=== PATIENT | female | born 2000 | race Caucasian/White ===

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

== ENCOUNTER 2024-09-22 06:49 | Inpatient (IN) ==
--- NOTE | 2024-09-22 07:20 | History & Physical Report ---
Date of Service September 22, 2024 Assessment & Plan (1) Breech presentation: Plan: section. The patient was counseled to the nature of the procedure including alternatives such as labor. Risks were discussed including bleeding infection injury to bowel bladder ureter vessels and even baby. Deep Vein thrombosis, pulmonary embolus discussed. Breakdown of incision reviewed. Deep vein thrombosis pulmonary embolus hernia and failure of the incision to heal were discussed Patient verbalized understanding of this and was given ample time to ask questions Patient arrived in active labor should be noted that she was scheduled for later this week however she is now 4 to 5 cm 100% effaced abdelrahman every 4 minutes painfully position is confirmed on ultrasound that is breech we will proceed to rapidly History of Present Illness Primary Care Provider: Mohamud Chavez DD Calculator Estimated Delivery Date Method Current WG Current Estimate 09/29/24 LMP (Certain) 38w 0d LMP: 12/24/23 : 1 Full term: 0 Premature: 0 Total Number of Induced Abortions: 0 Total Number of Spontaneous Abortions: 0 Ectopics: 0 Multiple births: 0 Number of Living Children: 0 and Delivery Plans Patient had pyloric stenosis surgery as Hepatitis b non-immune BREECH at 36wks C/S SCHEDULED FOR 09/25/[address] TIMMONS Allergies Allergy/AdvReac Type Severity Reaction Status Date / Time No Known Drug Allergies Allergy Verified 09/17/24 11:18 Home Medications Medication Instructions Recorded Confirmed Type calcium carbonate (Tums) 400 mg PO BID PRN Acid Reflux 09/17/24 09/17/24 History vit no.95-ferrous 1 tab PO QAM 09/17/24 09/17/24 History fumarate 28 mg-folic acid 800 mcg tablet () Patient History Medical History Breech presentation of fetus Pyloric stenosis hx--repaired Varicella vaccination Surgical History S/P pyloromyotomy, follow-up exam S/P wisdom tooth extraction Family History Grandmother (Maternal) Ovarian cancer Mother Breast cancer, Onset Age: 41 Other No family history of adverse response to anesthesia Denies family history of Prostate cancer Myocardial infarction Colorectal cancer Social History Smoking Status: Never smoker Second Hand Exposure: No; Do You Dip or Chew Tobacco: No; Hx Alcohol Use: No Hx Substance Use: No Preferred Language: Chinese Communication Ability: Effective Recovery Engineer Required: No Beliefs That Will Affect Care: None marital status: marital status details: Clint Salguero (28) [phone] Current Living Situation: Spouse Current Living Situation Comment: lives with, dog, cat-spouse changing litter current occupational status: employed current occupation: [employer] Feels Safe at Home: Yes Assistive Devices: Contacts and Glasses Physical Exam Constitutional: WD/WN, vitals as above well developed and well nourished Respiratory: normal respiratory effort, lungs clear to auscultation normal respiratory effort Cardiovascular: RRR, no murmur, no edema Gastrointestinal (Abdomen): normal bowel sounds, soft, nontender, no hepatosplenomegaly Results & Data Vital Signs (Past 12 Hours) Vital Signs Pulse BP 09/22/24 07:03 106 H 09/22/24 07:03 151/93 H 09/22/24 06:59 113 H 140/91 Coding Level of Care Code None Diagnoses Breech presentation O32.1XX0
[2024-09-22] MEDS: LACTATED RINGER'S 1,000 ML IV SCH ×2 (07:32→15:14)
--- NOTE | 2024-09-22 07:37 | Communication Note ---
Date of Service: September 22, 2024 24yo at term for planned c/s for breech now in active labor. Aware that given timing of arrival, will now allow provider overnight to go home and I will be provider of care. Consent reviewed and signed.
[2024-09-22] MEDS: AZITHROMYCIN 500 MG/255 ML BAG IV SCH (07:38)
[2024-09-22] MEDS ORDERED: PHENYLEPHRINE HCL 25 MG/250 ML NSS IV ONE (07:38)
[2024-09-22] MEDS ORDERED: PHENYLEPHRINE 100MCG/ML 5ML SYR ONE ×2 (07:38→08:45)
[2024-09-22] MEDS: ACETAMINOPHEN 500 MG TAB PO SCH (07:41)
[2024-09-22] MEDS ORDERED: MoRPHine SULFATE PF 1 MG/ML 10 ML AMP/VIAL ONE (07:42)
[2024-09-22] MEDS ORDERED: fentaNYL citrate PF 100 MCG/2 ML VIAL ONE (07:42)
[2024-09-22] MEDS ORDERED: ONDANSETRON INJ 2 MG/ML 2 ML VIAL ONE (07:44)
[2024-09-22] MEDS ORDERED: DEXAMETHASONE SOD INJ 4 MG/ML VIAL ONE (07:44)
[2024-09-22] MEDS: CITRIC ACID/SODIUM CITRATE 15 ML UDC PO SCH (07:44)
[2024-09-22 07:46] LABS: Hematocrit (blood only) 35.4 % (37.0-47.0); Hemoglobin 12.1 g/dl (12.0-16.0); Mean Corpuscular Hgb Conc 34.2 g/dL (32.0-36.0); Mean Corpuscular Volume 90.8 fL (80.0-100.0); Mean Platelet Volume 12.1 fL (9.4-12.4); Platelet Count 199 K/uL (130-400); RDW Coefficient of Variation 13.3 % (11.5-14.5); RDW Standard Deviation 43.8 fL (36.4-46.3); White Blood Count 11.71 K/ul (4.8-10.8)
[2024-09-22] MEDS: ceFAZolin 2000MG 2,000 MG/15 ML SYR IV SCH (07:57)
[2024-09-22] MEDS ORDERED: LACTATED RINGER'S 1,000 ML IV SCH (08:30)
[2024-09-22 08:33] LABS: Albumin Level 3.9 gm/dl (3.4-5.0); Bilirubin,Total 0.4 mg/dl (0.2-1.0); Calcium 9.8 mg/dl (8.6-10.3); Potassium 4.2 mmol/L (3.5-5.1)
[2024-09-22] MEDS ORDERED: oxyCODONE HCL IR 5 MG TAB (IMMEDIATE RELEASE) PO PRN (08:35)
[2024-09-22] MEDS ORDERED: MoRPHine SULFATE PF 1 MG/ML 10 ML AMP/VIAL INT SPINAL ONE (08:35)
[2024-09-22] MEDS ORDERED: HYDROmorphone INJ 0.5 MG/0.5 ML SYR IV PRN (08:35)
[2024-09-22] MEDS ORDERED: NALOXONE HCL 0.4 MG/1 ML VIAL/CARP IV PRN (08:35)
[2024-09-22] MEDS ORDERED: NALOXONE HCL 0.08 MG in SYRINGE 1.8 ML IV PRN (08:35)
[2024-09-22] MEDS ORDERED: NALOXONE HCL 1 MG in SODIUM CHLORIDE 0.9% 1,000 ML IV PRN (08:35)
[2024-09-22] MEDS ORDERED: diphenhydrAMINE 50 MG/ML VIAL IV PRN (08:35)
[2024-09-22] MEDS ORDERED: PROMETHAZINE 6.25 MG/50.25 ML BAG IV PRN (08:35)
[2024-09-22] MEDS ORDERED: ONDANSETRON INJ 2 MG/ML 2 ML VIAL IV PRN (08:35)
[2024-09-22] MEDS ORDERED: ePHEDrine sulfate 50 MG/ML AMP IV PRN (08:35)
[2024-09-22] MEDS ORDERED: NALBUPHINE HCL INJ 10 MG/ML AMP IV PRN (08:35)
[2024-09-22 08:39] LABS: Albumin Globulin Ratio 1.4 (0.9-2); BUN Creatinine Ratio 9.3 (10-20); Creatinine Clr Calc Pharmacy 138.5 ml/min; Globulin 2.7 gm/dl (2.5-4.0); Total Protein 6.6 gm/dl (6.0-8.3)
[2024-09-22] MEDS ORDERED: NO NARCOTICS OR SEDATIVES SCH (08:45)
[2024-09-22] MEDS ORDERED: DC INTRASPINAL MORPHINE SCH (08:45)
[2024-09-22] MEDS ORDERED: SENNA 8.6 MG TAB PO PRN (08:55)
[2024-09-22] MEDS ORDERED: CALCIUM CARBONATE 500 MG CHEWABLE TAB PO PRN (08:55)
[2024-09-22] MEDS ORDERED: DIPHTHER/TETAN/PERTUS Vaccine (Tdap, Adol/Adult) 0.5mL IM ONE (08:55)
[2024-09-22] MEDS ORDERED: MAGNESIUM HYDROXIDE SUSP 30 ML UDC PO PRN (08:55)
[2024-09-22] MEDS ORDERED: BENZOCAINE 20% SPRY 85 APPLN/85 GM CAN EXT PRN (08:55)
[2024-09-22] MEDS ORDERED: PROMETHAZINE 12.5 MG/50.5 ML BAG IV PRN (08:55)
[2024-09-22] MEDS ORDERED: HYDROCORTISONE ACETATE 25 MG SUPP PR PRN (08:55)
--- NOTE | 2024-09-22 09:06 | Operative Report ---
Post Operative Report Pre & Post Diagnosis Operation Date: 09/22/24 08:00 Pre-Op Diagnosis: 39 weeks iup, Active Labor, Breech Presentation of Fetus Post-Op Diagnosis: Same; Uterus sweetheart shape I identified the patient and participated in the time-out.: Yes Procedure Operation Date: 09/22/24 08:00 Actual Procedures p Primary Low Transverse Section in - Fallon Gongora MD, FACOG Surgeon Fallon Gongora MD, FACOG Beef Breaker PGY 1 Quantitative Blood Loss (QBL) 290 Findings See Below viable female,apgars pending. normal uterus, tubes and ovaries bilaterally. Of note the uterus had a sweet heart shape. Fluids 900cc Specimens cord blood Drains mehta Anesthesia Type Spinal Complications none Disposition Accompanied Patient To Recovery: No Disposition: L&D Indications 24yo at 39wks ega presents in labor with breech presentation for c/s. Description of Procedure The patient was taken to the operating room and identified. After adequate anesthesia was obtained, she was placed in the supine position with a leftward tilt on the operating table and prepped and draped in the usual sterile fashion. A mehta catheter had already been placed. The knife was used to create a Pfannensteil skin incision that was carried down to the underlying layer of fascia. The fascia was nicked in the midline and this opening was extended laterally using Leal scissors. Yariel clamps were placed on the superior and inferior aspect of the fascial incision tenting it upward and the underlying rectus muscles were dissected off the overlying fascia both sharply and bluntly using Leal scissors. The rectus muscles were bluntly in the midline. The peritoneal cavity was bluntly entered into. This opening was stretched. The bladder blade was placed. The vesicouterine peritoneum was elevated and opened up into and the bladder flap was created digitally and bladder blade was replaced. The knife was used to create a hysterotomy and this opening was stretched. The operators hand was placed through the hysterotomy and the bladder blade was removed. The buttocks was elevated and with fundal pressure the buttocks was delivered. With further fundal pressure fetus delivered to level of scapulae and then arms swept across anterior midline, head then flexed and delivered. The cord was clamped and cut and the infant's mouth and nares were bulb suction. The was handed off to the awaiting pediatricians. Cord blood was obtained. The placenta was manually expressed. The uterus was exteriorized and cleared of all clots and debris. Dilute IV Pitocin was begun. The uterine tone was improving. The hysterotomy was closed in a running interlocking fashion using 0 Vicryl followed by a second imbricating layer of 0 Vicryl. The hysterotomy was hemostatic. The pelvis was suctioend. The uterus was returned to the abdomen. At the midline of hysterotomy small bleeding site that was elevated and stitched with single figure of eight suture of 3-0 vicryl for excellent hemostasis. The gutters were cleared of all clots and debris. The hysterotomy was reinspected and noted to be hemostatic. The fascia was then closed in running fashion using 0 Vicryl. The subcutaneous fat was copiously irrigated and reapproximated using 2-0 chromic. The skin was closed in a subcuticular fashion using 4-0 monocryl. At this point the procedure was terminated. The patient was transferred to the recovery room in stable condition. All sponge, lap and needle counts are correct x2. I attest to the content of the Intraoperative Record and any orders documented therein. Any exceptions are noted below. OB Procedure Charges 35526
--- NOTE | 2024-09-22 09:12 | Anesthesiology Progress Note ---
Date of Service September 22, 2024 Anesthesia Post Procedure Vital Signs Vital Signs: Temp Pulse BP Pulse Ox 09/22/24 09:08 136 H 09/22/24 09:08 164/60 H 09/22/24 09:07 100 09/22/24 09:07 80 09/22/24 07:03 106 H 09/22/24 07:03 151/93 H 09/22/24 07:01 36.5 C 09/22/24 06:59 113 H 140/91 Transfer of Care Handoff Completed per policy Notes Mental Status: alert / awake / arousable and participated in evaluation Patient Amnestic to Procedure: No Nausea / Vomiting: adequately controlled Pain: adequately controlled Airway Patency, RR, SpO2: stable & adequate BP & HR: stable & adequate Hydration State: stable & adequate Neuraxial Anesthesia: was administered and sensory block is resolving Anesthetic Complications: no major complications apparent and Pt Satisfied with anesthetic care
[2024-09-22] MEDS: KETOROLAC 30 MG/ML VIAL IV SCH (10:00)
[2024-09-22] MEDS: SIMETHICONE 80 MG CHEW PO SCH (13:08)
[2024-09-22] MEDS: ACETAMINOPHEN 325 MG TAB PO SCH (15:16)
[2024-09-22] MEDS: DOCUSATE SODIUM 100 MG CAP PO SCH (20:56)
[2024-09-23] MEDS ORDERED: HYDROmorphone INJ 0.5 MG/0.5 ML SYR IV PRN (02:35)
[2024-09-23] MEDS ORDERED: diphenhydrAMINE 50 MG/ML VIAL IV PRN (02:35)
[2024-09-23] MEDS ORDERED: diphenhydrAMINE Capsule 25 MG CAP PO PRN (02:35)
[2024-09-23] MEDS ORDERED: ONDANSETRON INJ 2 MG/ML 2 ML VIAL IV PRN (02:35)
[2024-09-23 06:14] LABS: Basophils # (auto) 0.02 K/uL (0.00-0.20); Basophils % (auto) 0.1 %; Eosinophils # (auto) 0.03 K/uL (0.00-0.50); Eosinophils % (auto) 0.2 %; Hematocrit (blood only) 30.7 % (37.0-47.0); Immature Granulocytes # (auto) 0.09 K/uL (0.01-0.20); Immature Granulocytes % (auto) 0.7 %; Lymphocytes # (auto) 1.86 K/uL (1.20-3.40); Lymphocytes % (auto) 13.8 %; Mean Corpuscular Hemoglobin 30.1 pg (25.0-34.0); Mean Corpuscular Hgb Conc 32.6 g/dL (32.0-36.0); Mean Corpuscular Volume 92.5 fL (80.0-100.0); Mean Platelet Volume 12.1 fL (9.4-12.4); Monocytes # (auto) 1.21 K/uL (0.11-0.59); Neutrophils # (auto) 10.26 K/uL (1.40-6.50); Neutrophils % (auto) 76.2 %; Platelet Count 169 K/uL (130-400); RDW Coefficient of Variation 13.4 % (11.5-14.5); RDW Standard Deviation 45.1 fL (36.4-46.3); Red Blood Count 3.32 M/uL (4.20-5.40); White Blood Count 13.47 K/ul (4.8-10.8)
--- NOTE | 2024-09-23 06:55 | Obstetrical Progress Note ---
Date of Service September 23, 2024 Assessment & Plan (1) Breech presentation: (2) examination following delivery: Plan Pt is 24 yo post- day 1 s/p CS at 39w1d. complicated by breech presentation. - Encourage ambulation and breast feeding - Pain control with tylenol, ibuprofen, toradol or oxycodone - Likely discharge 09/24/24 Admission and Anticipated Discharge Date Admission Date: September 22, 2024 Supervising Physician Co-Signing Physician Notes Resident Physician Supervision Note: I was present with Dr. Ochoa during the history and exam. I discussed the case with the resident and agree with the findings and plan as documented in the note. Any exceptions or clarifications are listed here: stable doing well. breast feeding. no pain issues. eating, voiding, ambulating. abd soft ff 2down nt, incision c/d/i ext nt calves. pod#1 s/p c/s. doing well routine care. hgb pending Documented By: Fallon Gongora MD, FACOG Subjective Pt is 24 yo post- day 1 s/p CS at 39w1d. complicated by breech presentation. Ambulation:In room Voiding:voiding normally Passing gas: yes BM: no Diet tolerance:regular diet Lochia:bloody, small clots Feeding type: breast Current pain level: 4-5/10 improved with Tylenol or Toradol Resting comfortably this morning in NAD. Denies TREJO, CP, SOB, N/V/D, LE pain/swelling. Review of Systems Review of Systems: As per HPI Physical Exam Constitutional: WD/WN, vitals as above Respiratory: normal respiratory effort, lungs clear to auscultation Cardiovascular: RRR, no murmur, no edema Gastrointestinal (Abdomen): normal bowel sounds, soft, nontender, no hepatosplenomegaly Uterine fundus firm and at level of umbilicus Incision is clean, dry and well approximated Neurologic: PERRL, EOMI, accommodation nl, no face palsy, no dysarthria Moving all 4 extremities on command Psychiatric: A+Ox3, euthymic affect Results & Data Vital Signs (Past 12 Hours) Vital Signs Temp Pulse Resp BP Pulse Ox Pulse Ox O2 Del Method 09/23/24 03:30 36.4 C L 69 16 112/77 100 Room Air 09/23/24 02:36 16 96 09/23/24 01:30 16 96 09/23/24 00:25 16 96 09/22/24 23:35 36.7 C 76 18 106/67 98 Room Air 09/22/24 23:30 16 98 09/22/24 22:26 18 98 09/22/24 21:32 18 99 09/22/24 20:30 16 100 09/22/24 20:00 100 09/22/24 20:00 Room Air 09/22/24 20:00 36.4 C L 73 16 119/76 100 Room Air 09/22/24 19:25 18 100 O2 Del Method 09/23/24 03:30 09/23/24 02:36 09/23/24 01:30 09/23/24 00:25 09/22/24 23:35 09/22/24 23:30 09/22/24 22:26 09/22/24 21:32 09/22/24 20:30 09/22/24 20:00 Room Air 09/22/24 20:00 09/22/24 20:00 09/22/24 19:25 Resident Activity Tracking Resident Involvement: Resident Care Provided Care Provided: Adult Hospital Medicine
[2024-09-23] MEDS: PRENATAL VITAMIN 1 TAB PO SCH (07:37)
[2024-09-23] MEDS: FERROUS SULFATE 325 MG TAB PO SCH (07:37)
[2024-09-23] MEDS ORDERED: PRENATAL VITAMIN 1 TAB PO SCH (08:00)
[2024-09-23] MEDS ORDERED: KETOROLAC 30 MG/ML VIAL IV PRN (08:55)
[2024-09-23] MEDS: IBUPROFEN 600 MG TAB PO SCH (09:43)
[2024-09-23] MEDS: oxyCODONE HCL IR 5 MG TAB (IMMEDIATE RELEASE) PO PRN (15:27)
[2024-09-23] MEDS: bisacodyL 5 MG TABEC PO SCH (20:39)
[2024-09-24 00:42] VITALS: RESP 18
[2024-09-24 06:16] LABS: Hematocrit (blood only) 29.2 % (37.0-47.0); Hemoglobin 9.6 g/dl (12.0-16.0)
--- NOTE | 2024-09-24 06:25 | Obstetrical Progress Note ---
Date of Service September 24, 2024 Assessment & Plan (1) Breech presentation: (2) examination following delivery: Plan Pt is 24 yo post- day 2 s/p CS at 39w1d. complicated by breech presentation. - Encourage ambulation and breast feeding - Pain control with tylenol, ibuprofen, or oxycodone - Possible Discharge today or 09/25 Admission and Anticipated Discharge Date Admission Date: September 22, 2024 Supervising Physician Co-Signing Physician Notes Resident Physician Supervision Note: I interviewed and examined the patient. Discussed with Dr. Ochoa and agree with findings and plan as documented in the note. Any exceptions or clarifications are listed here: [None] Documented By: Sejal Arnold MD, FACOG Subjective Pt is 24 yo post- day 2 s/p CS at 39w1d. complicated by breech presentation. Ambulation:In room Voiding:voiding normally Passing gas: yes BM: no Diet tolerance:regular diet Lochia:bloody, no clots Feeding type: breast Current pain level: 2-5/10 improved with Tylenol or oxycodone Resting comfortably this morning in NAD. Denies TREJO, CP, SOB, N/V/D, LE pain/swelling. Review of Systems Review of Systems: As per HPI Physical Exam Constitutional: WD/WN, vitals as above Respiratory: normal respiratory effort, lungs clear to auscultation Cardiovascular: RRR, no murmur, no edema Gastrointestinal (Abdomen): normal bowel sounds, soft, nontender, no hepatosplenomegaly Uterine fundus is firm and 1-2 cm below umbilicus Incision is clean, dry and well approximated Neurologic: PERRL, EOMI, accommodation nl, no face palsy, no dysarthria Psychiatric: A+Ox3, euthymic affect Results & Data Vital Signs (Past 12 Hours) Vital Signs Temp Pulse Resp BP Pulse Ox O2 Del Method 09/23/24 23:50 36.5 C 75 18 106/65 98 Room Air Resident Activity Tracking Resident Involvement: Resident Care Provided Care Provided: Adult Hospital Medicine
[2024-09-24] MEDS ORDERED: bisacodyL 10 MG SUPP PR PRN (08:55)
[2024-09-24] MEDS: IBUPROFEN 600 MG TAB PO PRN (08:56)
[2024-09-24 09:42] VITALS: BP 108/73; PULSE 81; TEMP 97.5; O2SAT 100
[2024-09-24] MEDS ORDERED: ACETAMINOPHEN 325 MG TAB PO PRN (14:55)
== END 2024-09-24 13:56 | disposition home or self-care (01) | DRG 788 ==
LOC: OPB 06:49 → 4S1 06:53 → 4E2 11:50